=== PATIENT | male | born 1985 | race Caucasian/White ===

== ENCOUNTER 2023-07-01 03:06 | Emergency (ER) | payer OTHER ==
[~2023-07-01] VITALS: Ht 180.3 cm; Wt 65.8 kg
[2023-07-01] MEDS ORDERED: SULF1TAB47 PO (03:41)
[2023-07-01] MEDS ORDERED: BICT1TAB PO (03:41)
[2023-07-01] MEDS ORDERED: CEphaleXIN 500 MG CAPSULE ONE (03:55)
[2023-07-01] MEDS ORDERED: CEphaleXIN 500 MG CAPSULE PO ONE (04:00)
[2023-07-01] MEDS ORDERED: SULF1TAB48 PO (04:01)
[2023-07-01] MEDS ORDERED: CEPH500C2 PO (04:01)
[2023-07-01] MEDS ORDERED: NEOMY/BACITRA/POLYMYXIN B OINT UD PACKET TP ONE ×2 (04:04→04:15)
[2023-07-01 04:09] VITALS: BP 118/75; TEMP 98.6; O2SAT 99
== END 2023-07-01 04:09 | disposition home or self-care (01) ==
LOC: ER 03:18
DX: L03.115 Cellulitis of right lower limb (principal); L98.9 Disorder of the skin and subcutaneous tissue, unspecified; Z88.1 Allergy status to other antibiotic agents; Z88.8 Allergy status to other drugs, medicaments and biological substances; Z79.899 Other long term (current) drug therapy
CPT/HCPCS: A4606; A4663